=== PATIENT | male | born 1965 | race Caucasian/White ===

== ENCOUNTER → 2020-10-15 10:08 | Outpatient (CLI) | payer BC, SELFPAY ==
[2020-10-15 19:13] LABS: Add Manual Diff / Slide Review NO; Basophils Absolute Auto 100 /uL (0-100); Basophils Percent Auto 0.8 % (0-2); Eosinophils Absolute Auto 300 /uL (0-450); Eosinophils Percent Auto 3.4 % (2-4); Hematocrit 40.8 % (41-53); Lymphocytes Absolute Auto 2100 /uL (1100-4500); Lymphocytes Percent Auto 23.9 % (25-40); Mean Corpuscular HGB Conc 34.2 % (30-36); Mean Corpuscular Hemoglobin 31.8 PG (26-34); Monocytes Absolute Auto 500 /uL (0-900); Neutrophils Absolute Auto 5900 /uL (1500-7000); Neutrophils Percent Auto 65.9 % (50-75); Platelet Count 319 X10^3/uL (150-400); Red Blood Cell Count 4.39 X10^6/uL (4.5-5.9); Red Cell Distribution Width 14.2 % (11.6-14.8); White Blood Cell Count 8.9 X10^3/uL (4.5-11.0)
[2020-10-15 19:32] LABS: Hemoglobin A1C% w Est Avg Glu 5.7 % (4.0-6.0)
[2020-10-15 19:35] LABS: Alanine Aminotransferase 33 IU/L (<50); Albumin 4.3 g/dL (3.5-5.0); Albumin Globulin Ratio 1.6 (1.0-2.8); Alkaline Phosphatase 52 U/L (38-126); Aspartate Aminotransferase 36 IU/L (17-59); BUN Creatinine Ratio 18.8 (6-22); Bilirubin Total 0.6 mg/dL (0.2-1.3); Blood Urea Nitrogen 16 mg/dL (9-20); Carbon Dioxide 29 mmol/L (22-32); Chloride 96 mmol/L (98-107); Cholesterol 219 mg/dL (140-199); Estimated Glomerular Filt Rate > 60.0 mL/min (>60); Globulin 2.7 g/dL (1.7-4.1); Glucose 104 mg/dL (70-100); HDL Cholesterol 68 mg/dL (40-60); HEMOLYSIS < 15 (0-50); LDL Cholesterol Calculated 120 mg/dL (<100); Potassium 3.9 mmol/L (3.4-5.1); Sodium 131 mmol/L (137-145); Triglycerides 154 mg/dL (35-150)
[2020-10-15 20:43] LABS: Creatinine Urine Random 62.5 mg/dL
[2020-10-15 20:53] LABS: Microalbumin Urine Random < 0.6 mg/dL (0-1.6)
== END ==
PROVIDERS: PCP Family Medicine; Visit Provider Physician Assistant
DX: E78.5 Hyperlipidemia, unspecified (principal); I10 Essential (primary) hypertension; L30.9 Dermatitis, unspecified; L98.9 Disorder of the skin and subcutaneous tissue, unspecified
CPT/HCPCS: 80053; 80061; 82043; 82570; 83036; 85025; 87070; 87075; 87077; 87147; 87186; 87205

== ENCOUNTER → 2020-11-19 13:04 | Outpatient (CLI) | payer BC, SELFPAY ==
[2020-11-19 19:34] LABS: Hemoglobin A1C% w Est Avg Glu 5.8 % (4.0-6.0)
== END ==
PROVIDERS: PCP Family Medicine; Visit Provider Physician Assistant
DX: B35.3 Tinea pedis (principal); L03.115 Cellulitis of right lower limb; L03.116 Cellulitis of left lower limb; R73.9 Hyperglycemia, unspecified
CPT/HCPCS: 83036

== ENCOUNTER 2020-12-03 09:17 | Emergency (ER) | payer BC, SELFPAY ==
[2020-12-03 09:32] VITALS: BP 169/111; PULSE 85; RESP 14; TEMP 37.2; O2SAT 99
--- NOTE | 2020-12-03 09:48 | PC.NURSE ---
bilateral scale and flaky skin. Volar surfaces appear close to no skin over tissue. States has been going on for weeks, given doxy witn no improvment. denies fever, chills, n/v/d, night sweats
--- NOTE | 2020-12-03 10:24 | ED.SKABFB ---
HPI - Skin/Abscess/Foreign Bdy General Chief complaint: Skin/Abscess/Foreign Body Stated complaint: Fungus on both feet Time Seen by Provider: 12/03/20 10:12 Source: patient and family Mode of arrival: Ambulatory Limitations: no limitations History of Present Illness HPI narrative: Patient here with . Complains of bilateral feet pain swelling redness and skin loss. Patient has been followed by family doctor and given antibiotic orally as well as steroid cream as well as antifungal medication without any improvement. Patient seen by Dr. Reyes, podiatry and patient states that she recommends infectious disease or dermatology evaluation as this is not a podiatry problem. Patient has not been able see infectious disease or Dermatology, no referral. [facility] however [facility] states [facility]. he does agree with steroids as Dr. Reyes recommended steroids. However there was no communication with family doctor by Dr. Reyes. No fever chills. Skin is dry. Family doctor is with [facility] system. Needs to give referral to [facility] infectious disease as well as Dermatology Related Data Home Medications Medication Instructions Recorded Confirmed atorvastatin 40 mg tablet 40 mg PO DAILY 09/17/20 11/19/20 disulfiram 250 mg tablet 250 mg PO DAILY 09/17/20 11/19/20 hydrochlorothiazide 25 mg tablet 25 mg PO DAILY 09/17/20 11/19/20 lisinopril 20 mg tablet 20 mg PO DAILY 09/17/20 11/19/20 Previous Rx's Medication Instructions Recorded lorazepam 1 mg tablet 1 mg PO BID PRN 14 Days #28 tab 11/27/20 MDD 2mg clobetasol 1 applic TOPICAL BID 14 Days #30 g 12/03/20 hydrocodone-acetaminophen 1 tab PO Q6H PRN #15 tab 12/03/20 Allergies Allergy/AdvReac Type Severity Reaction Status Date / Time No Known Drug Allergies Allergy Verified 12/03/20 09:36 Review of Systems Review of Systems Narrative: GENERAL: Denies chills, fatigue, malaise, fever, sweats. HEENT: Denies sinus pain, ear pain, sore throat RESPIRATORY: Denies dyspnea, cough CARDIOVASCULAR: Denies chest pain, palpitations GASTROINTESTINAL: Denies nausea, vomiting, abdominal pain : Denies dysuria, frequency, hematuria MUSCULOSKELETAL: denies muscle or bony pain SKIN: Complains of skin rash/erythema/skin loss NEUROLOGIC: Denies weakness, numbness ROS Unobtainable: All systems reviewed & are unremarkable except as noted in HPI and below Patient History Social History Smoking Status: Former smoker Smoking Status: Former smoker alcohol intake frequency: 0-2 drinks per day Substance Use Type: marijuana Exam Narrative Exam Narrative: GENERAL: in no distress, not toxic not dyspneic HEAD: Normocephalic. EXTREMITIES: No gross deformities. Examination bilateral feet. There is dryness with cracking and skin loss with patchy distribution largely with the toes and plantar surface of the feet. NEURO: AOx4. SKIN: Warm and dry PSYCH: Not anxious, is cooperative Initial Vital Signs Initial Vital Signs: Vital Signs Temperature 98.9 F 12/03/20 09:32 Pulse Rate 85 12/03/20 09:32 Respiratory Rate 14 12/03/20 09:32 Blood Pressure 169/111 H 12/03/20 09:32 Pulse Oximetry 99 12/03/20 09:32 Course Course Course Narrative: No new issues during course of stay Vital Signs Vital signs: Vital Signs - 8 hr 12/03/20 09:32 Temperature 98.9 F Pulse Rate 85 Respiratory Rate 14 Blood Pressure 169/111 H Pulse Oximetry 99 MDM - Skin/Abscess/Foreign Bdy Differential Diagnosis Differential diagnosis: Likely dermatophytosis, cellulitis, eczema and other (Psoriasis) Medical Records Attestation: I reviewed the patient's medical records. MDM Narrative Medical decision making narrative: Appropriate for discharge home. Ongoing chronic for 3 months. Will try topical steroid and cream. Patient family doctor is with [facility] system and needs to refer to Infectious Disease as well as Dermatology. Patient understands and agrees with treatment plan. Discharge Plan Departure Patient Disposition: Home Clinical Impression: Psoriasis Instructions: DI for Psoriasis Activity Restrictions/Additional Instructions: Call your family doctor and form that the are affiliated with [facility] and needs to get referral to Infectious Disease as well as Dermatology. No driving or operating machinery with prescribed pain medication. You make it urea cream that is [id number] at the pharmacy to use twice a day for 2 weeks. Return if worse if any questions or concerns. Prescriptions: New hydrocodone-acetaminophen 5-325 mg tablet 1 tab PO Q6H PRN (Reason: pain) Qty: 15 RF: 0 clobetasol 0.05 % cream 1 applic topical BID 14 Days Qty: 30 RF: 0 No Action lorazepam 1 mg tablet 1 mg PO BID MDD 2mg PRN (Reason: anxiety) 14 Days Qty: 28 RF: 0 atorvastatin 40 mg tablet 40 mg PO DAILY RF: 0 disulfiram 250 mg tablet 250 mg PO DAILY RF: 0 hydrochlorothiazide 25 mg tablet 25 mg PO DAILY RF: 0 lisinopril 20 mg tablet 20 mg PO DAILY RF: 0 Referrals: Saul Rodriguez MD [Primary Care Provider] -
== END 2020-12-03 10:47 | disposition home or self-care (01) ==
PROVIDERS: Emergency Provider Emergency Medicine; PCP Family Medicine
DX: L40.9 Psoriasis, unspecified (principal)
CPT/HCPCS: 99281